=== PATIENT | female | born 1970 | race Caucasian/White ===

== ENCOUNTER 2018-05-24 17:43 | Emergency (ER) | payer BC ==
[~2018-05-24] VITALS: Ht 160 cm; Wt 80.7 kg
[~2018-05-24 17:43] MED LIST: ALLEGRA ALLERGY60 MG PO; CIPRO250 M1 PO; CIPRO250 MG PO; FLEXERIL PO; GRALISE600 MG PO; HYDROCODONE-AP1 EAC6 PO; IBUPROFEN 600600 M1 PO; IBUPROFEN 800800 MG PO; LAMASIL; LAMICTAL XR200 MG; LAMICTAL100 MG PO; LYRICA 75 MG CA75 MG PO; MOBIC15 MG; MOBIC15 MG PO; NEURONTIN 300300 M1 PO; NORCO 5-325 TA1 EACH PO; PENICILLIN VK500 M1 PO; PREDNISONE50 MG PO; PROZAC20 MG/5 ML PO; PYRIDIUM100 MG PO; ROBAXIN 750 MG750 M1 PO; ROBAXIN 750 MG750 MG PO; TORADOL 10 MG T10 MG PO; TRAMADOL 50 MG50 MG PO; ULTRAM 50MG TAB50 MG PO; VITAMIN B125000 MCG PO; VITAMIN D1000 UNI1 PO; XANAX 0.5 MG0.5 M1; XANAX 0.5 MG0.5 MG PO; ZOLOFT100 MG; ZOLOFT50 MG PO
[2018-05-24] MEDS ORDERED: TRAMADOL 50 MG50 MG PO (18:40)
[2018-05-24] MEDS ORDERED: NORCO 5-325 TA1 EACH PO (19:39)
[2018-05-24] MEDS ORDERED: FLEXERIL PO (19:39)
[2018-05-24 19:52] VITALS: BP 139/87
== END 2018-05-24 19:53 | disposition home or self-care (01) ==
LOC: M.ERS 17:43
DX: S16.1XXA Strain of muscle, fascia and tendon at neck level, initial encounter (principal); S70.01XA Contusion of right hip, initial encounter; S00.83XA Contusion of other part of head, initial encounter; Z90.710 Acquired absence of both cervix and uterus; V49.49XA Driver injured in collision with other motor vehicles in traffic accident, initial encounter; Y93.89 Activity, other specified; Y92.89 Other specified places as the place of occurrence of the external cause; Y99.8 Other external cause status

== ENCOUNTER → 2018-07-08 | Outpatient (CLI) | payer BC ==
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
== END | disposition home or self-care (01) ==
LOC: M.PC 05:09
DX: M54.12 Radiculopathy, cervical region (principal); G89.29 Other chronic pain; F32.9 Major depressive disorder, single episode, unspecified; E66.09 Other obesity due to excess calories; Z98.84 Bariatric surgery status; Z79.899 Other long term (current) drug therapy; Z68.31 Body mass index [BMI] 31.0-31.9, adult; Z98.890 Other specified postprocedural states

== ENCOUNTER → 2018-09-23 | Outpatient (CLI) | payer BC ==
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
== END | disposition home or self-care (01) ==
LOC: M.PC 05:11
DX: M54.12 Radiculopathy, cervical region (principal); G89.29 Other chronic pain; F32.9 Major depressive disorder, single episode, unspecified; E66.09 Other obesity due to excess calories; Z98.84 Bariatric surgery status; Z98.890 Other specified postprocedural states; Z68.32 Body mass index [BMI] 32.0-32.9, adult; Z79.899 Other long term (current) drug therapy

== ENCOUNTER 2018-10-26 05:44 | Emergency (ER) | payer BC ==
[~2018-10-26] VITALS: Ht 160 cm; Wt 78.9 kg
[2018-10-26] MEDS ORDERED: VITAMIN D2000 UNIT (05:52)
[2018-10-26 06:28] LABS: ABSOLUTE EOSINOPHILS 0.1 thou/uL (0.0-0.7); ABSOLUTE LYMPHOCYTES 1.1 thou/uL (0.8-5.3); ABSOLUTE MONOCYTES 0.5 thou/uL (0.0-1.2); ABSOLUTE NEUTROPHILS 6.8 thou/uL (1.6-8.1); BASOPHILS 0.2 %; EOSINOPHILS 1.3 %; HEMATOCRIT 39.1 % (37.0-47.0); HEMOGLOBIN 13.3 gm/dL (12.0-15.0); LYMPHOCYTES 13.1 %; MCH 29.2 pg (26.0-34.0); MONOCYTES 5.6 %; NUCLEATED RBCS 0 /100WBC; PLATELET COUNT* 158 thou/uL (150-400); POLYS 79.8 %; RBC 4.54 mil/uL (4.20-5.00); RDW-CV 13.8 % (10.5-14.5); WBC 8.5 thou/uL (4.0-11.0)
[2018-10-26 06:38] LABS: ANION GAP 10 mmol/L (7-16); BUN 24 mg/dL (7-18); CALCIUM 8.4 mg/dL (8.5-10.1); CHLORIDE 109 mmol/L (98-107); CO2 23 mmol/L (21-32); CREATININE 0.7 mg/dL (0.6-1.3); GLUCOSE 108 mg/dL (70-99); POTASSIUM 4.1 mmol/L (3.5-5.1); SODIUM 142 mmol/L (136-145)
[2018-10-26 06:47] LABS: ALBUMIN 3.3 g/dL (3.4-5.0); ALKALINE PHOSPHATASE 92 U/L (46-116); LIPASE 256 U/L (73-393); SGOT 137 U/L (15-37); SGPT 77 U/L (30-65); TOTAL BILIRUBIN 0.7 mg/dL (<0.1-1.0); TOTAL PROTEIN 6.2 g/dL (6.4-8.2); TROPONIN-I LEVEL <0.06 ng/mL (<0.06)
[2018-10-26 06:48] LABS: SERUM ASSESSMENT Clear
[2018-10-26 07:00] LABS: CHOLESTEROL 211 mg/dL (<200); HDL CHOLESTEROL 55 mg/dL (>40); LDL CHOLESTEROL 122 mg/dL (<100); TC:HDL 3.8 Ratio (Not establshd); TRIGLYCERIDE 172 mg/dL (<150); VLDL 34 mg/dL (<40)
[2018-10-26 09:27] VITALS: BP 128/68
--- NOTE | 2018-10-26 15:43 | EKG ---
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 : 1970 Requested By: Maday Taylor Order Number: [id number] MD: Daniel Schmidt Measurements Intervals [place] Rate: 80 P: 1 [place]: 142 QRS: 13 QRSD: 88 T: 26 QT: 376 QTc: 434 Interpretive Statements Sinus rhythm Baseline wander in lead(s) II,III,aVF Compared to ECG 05/16/2014 21:35:01 No significant changes Electronically Signed On 10-26-2018 15:43:03 CDT by Daniel Schmidt [email or web address] <ELECTRONICALLY SIGNED> By: Daniel Schmidt MD, [facility] 10/26/18 1543 0550 0550 Daniel Schmidt MD, [facility] /EPI
== END 2018-10-26 09:28 | disposition home or self-care (01) ==
LOC: M.ERS 05:44
PROVIDERS: Personal Emergency Response Attendant
DX: R07.89 Other chest pain (principal); R10.13 Epigastric pain; M25.572 Pain in left ankle and joints of left foot; Z90.710 Acquired absence of both cervix and uterus

== ENCOUNTER → 2018-11-23 | Outpatient (CLI) | payer BC ==
[~2018-11-23] MED LIST changes: +VITAMIN D2000 UNIT
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
== END | disposition home or self-care (01) ==
LOC: M.PC 05:12
DX: M54.12 Radiculopathy, cervical region (principal); G89.29 Other chronic pain; F32.9 Major depressive disorder, single episode, unspecified; E66.09 Other obesity due to excess calories; Z98.84 Bariatric surgery status; Z79.899 Other long term (current) drug therapy; Z98.890 Other specified postprocedural states; Z68.31 Body mass index [BMI] 31.0-31.9, adult